=== PATIENT | female | born 1985 | race Caucasian/White ===

== ENCOUNTER 2018-10-26 16:24 | Emergency (ER) | payer OTHER ==
[2018-10-26] MEDS ORDERED: IBUPROFEN 600 MG TABLET (FP) PO ONE ×2 (16:39→16:49)
[2018-10-26 16:40] VITALS: BP 110/64; PULSE 81; TEMP 97.8; BMI 21.9
--- NOTE | 2018-10-26 16:46 | PDOC ---
Attending Attestation - Resident Resident Name: SueSaMarcy - ED Attending Attestation I have performed the following: I have examined & evaluated the patient, The case was reviewed & discussed with the resident, I agree w/resident's findings & plan, Exceptions are as noted - HPI HPI: 32 yo F presents with R 3rd finger pain after slamming it in a door. Initially she noticed a "dent", now it is swollen, firm, and very painful. She is able to bend her finger. No other injuries. No open lesions. - Physicial Exam PE: GENERAL: Awake, alert, and fully oriented, in no acute distress EXTREMITIES: R 3rd finger with dorsal swelling over the middle phalanx. FROM. Remainder of extremities with normal range of motion, no edema. No clubbing or cyanosis. No cords, erythema, or tenderness NEUROLOGICAL: Cranial nerves II through XII grossly intact. Normal speech, normal gait. Motor and sensation intact SKIN: Warm, Dry, normal turgor, no rashes or lesions noted. - Medical Decision Making XR r/o fx, DC home.
--- NOTE | 2018-10-26 16:46 | PDOC ---
History of Present Illness - General Chief Complaint: Injury Stated Complaint: RT 3RD FINGER INJURY Time Seen by Provider: 10/26/18 16:29 History Source: Patient Exam Limitations: No Limitations - History of Present Illness Initial Comments: 10/26/18 16:42 Pt is a 32yo F with no significant PMH presenting to ED with complaints of R 3rd digit pain. Pt states that she accidently closed the door on her finger and has been having pain since. Swelling is worse today. Pt states she feels pain shooting down the finger and feels the pain when she touches it. Denies numbness /tingling, breakage of skin, inability to move fingers. She has been taking Advil for the pain. Past History - Past Medical History Allergies/Adverse Reactions: Allergies Allergy/AdvReac Type Severity Reaction Status Date / Time No Known Allergies Allergy Verified 10/26/18 16:25 Home Medications: Ambulatory Orders Ibuprofen [Advil -] 400 mg PO ONCE 10/26/18 COPD: No Other medical history: DENIES - Suicide/Smoking/Psychosocial Hx Smoking History: Never smoked Have you smoked in the past 12 months: No Information on smoking cessation initiated: No Hx Alcohol Use: No Review of Systems - Review of Systems Constitutional: No: Symptoms Reported HEENTM: No: Symptoms Reported Respiratory: No: Symptoms reported Cardiac (ROS): No: Symptoms Reported ABD/GI: No: Symptoms Reported : No: Symptoms Reported Musculoskeletal: Yes: See HPI, Other (pain in r 3rd digit middle phalange) Integumentary: No: Erythema, Lesions Neurological: No: Symptoms reported *Physical Exam - Vital Signs Last Vital Signs Temp Pulse Resp BP Pulse Ox 97.8 F 81 16 110/64 99 10/26/18 16:24 10/26/18 16:24 10/26/18 16:24 10/26/18 16:24 10/26/18 16:24 - Physical Exam General Appearance: Yes: Nourished, Appropriately Dressed. No: Apparent Distress HEENT: positive: EOMI, VENECIA, Normal ENT Inspection Neck: positive: Trachea midline, Supple. negative: Lymphadenopathy (R), Lymphadenopathy (L) Respiratory/Chest: positive: Lungs Clear, Normal Breath Sounds Cardiovascular: positive: Regular Rhythm, Regular Rate Comments:: 10/26/18 17:20 radial pulses 2+ Musculoskeletal: positive: Other (R 3rd digit swelling and ttp at middle phalange. full ROM, skin intact). negative: CVA Tenderness Extremity: positive: Normal Capillary Refill. negative: Pedal Edema, Swelling Integumentary: positive: Normal Color, Dry, Warm Neurologic: positive: news video editor II-XII NML intact, Fully Oriented, Alert, Normal Mood/ Affect, Normal Response, Motor Strength 5/5 Medical Decision Making - Medical Decision Making 10/26/18 17:21 Pt is a 32yo F with no significant PMH presenting to ED with complaints of R 3rd digit pain. Pt states that she accidently closed the door on her finger and has been having pain since. Swelling is worse today. Pt states she feels pain shooting down the finger and feels the pain when she touches it. Denies numbness /tingling, breakage of skin, inability to move fingers. She has been taking Advil for the pain. vitals wnl PE; slight swelling at R 3rd digit middle phalange with some ttp. full ROM. no decrreased sensation, no deformity most likely swelling from impact. will obtain xray to r/o fracture. -ibuprofen 10/26/18 17:33 No fracture seen on xray. pt stable, neurovascularly intact safe for dc home. given dc instructions and return precautions. *DC/Admit/Observation/Transfer Diagnosis at time of Disposition: Finger injury Qualifiers: Encounter type: initial encounter Laterality: right Qualified Code(s): S69.91XA - Unspecified injury of right wrist, hand and finger(s), initial encounter - Discharge Dispostion Disposition: HOME Condition at time of disposition: Good Decision to Admit order: No - Referrals - Patient Instructions Additional Instructions: You were seen in the emergency room today for pain in your finger after an injury. The xray does not show a fracture. I recommend applying ice as needed for the swelling and ibuprofen or tylenol for the pain as needed. Come back to the emergency room if pain gets worse, you are unable to move the finger, swelling gets worse or if any new concerning symptom develops. Thank you - Post Discharge Activity
== END 2018-10-26 17:40 | disposition home or self-care (01) ==
LOC: FER 16:24
DX: S69.91XA Unspecified injury of right wrist, hand and finger(s), initial encounter (principal); W20.8XXA Other cause of strike by thrown, projected or falling object, initial encounter; Y93.89 Activity, other specified; Y92.89 Other specified places as the place of occurrence of the external cause
CPT/HCPCS: 73140-TC-RT-FY; 99282-25